=== PATIENT | female | born 1940 | race Asian ===

== ENCOUNTER 2017-06-22 19:58 | Inpatient (IN) | payer OTHER ==
[~2017-06-22] VITALS: Ht 152.4 cm; Wt 71.7 kg
[~2017-06-22 19:58] MED LIST: AMLODIPINE BES2.5 M1 PO; ASPIR 8181 MG; ATORVASTATIN CA80 M1 PO; ECO81 PO; FENOFIBRATE54 M1 PO; GLU500 PO; HCTZ/LISINOPRIL1 TA1 PO; LOSARTAN POTASS25 M1 PO; METOPROLOL TART25 M1 PO; VICODIN1 TA1 PO
[2017-06-22 20:03] VITALS: Ht 152.4 cm; Wt 71.7 kg
[2017-06-22] MEDS ORDERED: POTASSIUM CHLO10 MEQ PO (20:51)
[2017-06-22] MEDS ORDERED: FUROSEMIDE40 MG PO (20:51)
[2017-06-22] MEDS ORDERED: DIOVAN320 MG PO (20:51)
[2017-06-22] MEDS ORDERED: LEVOCETIRIZINE D5 M1 PO (20:52)
[2017-06-22] MEDS ORDERED: MELOXICAM7.5 M1 PO (20:52)
[2017-06-22] MEDS ORDERED: GLIMEPIRIDE2 M1 PO (20:52)
[2017-06-22] MEDS ORDERED: TRAMADOL HCL50 MG PO (20:52)
[2017-06-22 21:05] LABS: microscopic required? NO
[2017-06-22 21:13] LABS: urine erythrocyte NEGATIVE (NEGATIVE)
[2017-06-22 22:07] LABS: CALCIUM 9.2 mg/dL (8.5-10.1); CARBON DIOXIDE 25.4 mmol/L (21-32); CHLORIDE SERUM 101 mmol/L (98-107); CREATININE SERUM 0.9 mg/dL (0.6-1.0); GLUCOSE SERUM 131 mg/dL (74-106); POTASSIUM SERUM 3.3 mmol/L (3.5-5.1); SODIUM SERUM 138 mmol/L (136-145)
[2017-06-22 22:10] LABS: ALBUMIN 3.8 g/dL (3.4-5.0); ALKALINE PHOSPHATASE 54 U/L (46-116); ALT/SGPT 32 U/L (14-59); AST/SGOT 27 U/L (15-37); BILIRUBIN TOTAL 0.34 mg/dL (0.20-1.00); TOTAL PROTEIN, SERUM 6.9 g/dL (6.4-8.2)
[2017-06-22 22:24] LABS: BASOPHIL % 0.8 % (0-2); PLATELET COUNT 242 x10^3mcL (130-400); RED CELL DISTRIBUTION WIDTH 14.6 % (11.5-14.5)
[2017-06-23] VITALS (8 sets, daily range): BP systolic 127–192; BP diastolic 53–69
[2017-06-23 02:50] LABS: MAGNESIUM 1.9 mg/dL (1.8-2.4); PHOSPHOROUS 2.6 mg/dL (2.5-4.9)
[2017-06-23 02:53] LABS: CHOLESTEROL/HDL RATIO 3.1
[2017-06-23 02:56] LABS: FREE T4 1.27 ng/dL (0.76-1.46); FREE THYROXINE INDEX 3.2 ug/dL (1.4-4.5)
[2017-06-23 02:57] LABS: T3 TOTAL 0.59 ng/mL
[2017-06-23] MEDS ORDERED: VALSARTAN AND H PO (08:35)
[2017-06-23] MEDS ORDERED: CARVEDILOL12.5 M1 PO ×2 (08:45→09:45)
[2017-06-24 04:52] VITALS: BP 164/74
[2017-06-24 05:58] LABS: BASOPHIL % 0.6 % (0-2); PLATELET COUNT 252 x10^3mcL (130-400); RED CELL DISTRIBUTION WIDTH 14.5 % (11.5-14.5)
[2017-06-24 06:31] LABS: CALCIUM 9.5 mg/dL (8.5-10.1); CARBON DIOXIDE 29.3 mmol/L (21-32); CHLORIDE SERUM 103 mmol/L (98-107); CREATININE SERUM 1.1 mg/dL (0.6-1.0); GLUCOSE SERUM 109 mg/dL (74-106); MAGNESIUM 1.8 mg/dL (1.8-2.4); PHOSPHOROUS 4.2 mg/dL (2.5-4.9); POTASSIUM SERUM 3.6 mmol/L (3.5-5.1); SODIUM SERUM 142 mmol/L (136-145)
[2017-06-24] MEDS ORDERED: CARVEDILOL12.5 M1 PO ×2 (08:17)
[2017-06-24 09:41] VITALS: BP 166/75
[2017-06-24 12:01] VITALS: BP 115/62
[2017-06-24 13:21] VITALS: BP 115/62
[2017-06-24] MEDS ORDERED: DIOVAN HCT1 TA3 PO (14:06)
[2017-06-24 14:10] VITALS: BP 115/62
[2017-06-29] MEDS ORDERED: MECLIZINE HYD12.5 MG PO (18:54)
== END 2017-06-24 14:46 | disposition home or self-care (01) | DRG 304 ==
LOC: ED 19:58 → DU 06-23 01:32
PROVIDERS: Emergency Medicine; Student in an Organized Health Care Education/Training Program
DX: I16.0 Hypertensive urgency (principal); N17.0 Acute kidney failure with tubular necrosis; R55 Syncope and collapse; E11.65 Type 2 diabetes mellitus with hyperglycemia; E87.6 Hypokalemia; I10 Essential (primary) hypertension; K21.9 Gastro-esophageal reflux disease without esophagitis; E11.51 Type 2 diabetes mellitus with diabetic peripheral angiopathy without gangrene; E03.9 Hypothyroidism, unspecified; E78.5 Hyperlipidemia, unspecified; E78.00 Pure hypercholesterolemia, unspecified; Z88.0 Allergy status to penicillin; Z82.49 Family history of ischemic heart disease and other diseases of the circulatory system
CPT/HCPCS: 82962; 83880; 84439; J0360; J7030; Q0092

== ENCOUNTER 2019-01-25 18:03 | Emergency (ER) | payer OTHER ==
[~2019-01-25] VITALS: Ht 152.4 cm; Wt 81.6 kg
[~2019-01-25 18:03] MED LIST changes: +CARVEDILOL12.5 M1 PO; +DIOVAN HCT1 TA3 PO; +DIOVAN320 MG PO; +FUROSEMIDE40 MG PO; +GLIMEPIRIDE2 M1 PO; +LEVOCETIRIZINE D5 M1 PO; +MECLIZINE HYD12.5 MG PO; +MELOXICAM7.5 M1 PO; +POTASSIUM CHLO10 MEQ PO; +TRAMADOL HCL50 MG PO; +VALSARTAN AND H PO
[2019-01-25 18:10] VITALS: Ht 152.4 cm; Wt 81.6 kg
[2019-01-25 19:44] LABS: BASOPHIL % 0.8 % (0-2); PLATELET COUNT 214 x10^3mcL (130-400)
[2019-01-25 19:46] LABS: RED CELL DISTRIBUTION WIDTH 15.7 % (11.5-14.5)
[2019-01-25 19:57] LABS: CALCIUM 8.8 mg/dL (8.5-10.1); CARBON DIOXIDE 27.9 mmol/L (21-32); CHLORIDE SERUM 104 mmol/L (98-107); GLUCOSE SERUM 132 mg/dL (74-106); POTASSIUM SERUM 3.9 mmol/L (3.5-5.1); SODIUM SERUM 143 mmol/L (136-145)
[2019-01-25 20:04] LABS: ALBUMIN 3.6 g/dL (3.4-5.0); ALKALINE PHOSPHATASE 91 U/L (46-116); ALT/SGPT 26 U/L (14-59); AST/SGOT 26 U/L (15-37); BILIRUBIN TOTAL 0.42 mg/dL (0.20-1.00); TOTAL PROTEIN, SERUM 7.1 g/dL (6.4-8.2)
[2019-01-25 20:08] LABS: CHOLESTEROL 230 mg/dL (<200)
[2019-01-26 00:47] VITALS: BP 125/69
== END 2019-01-26 00:47 | disposition home or self-care (01) ==
LOC: ED 18:03
PROVIDERS: Specialist
DX: R42 Dizziness and giddiness (principal); R26.2 Difficulty in walking, not elsewhere classified; I10 Essential (primary) hypertension; Z88.0 Allergy status to penicillin
CPT/HCPCS: 36415; G0480; Q0092; Q9967

== ENCOUNTER 2019-04-05 11:53 | Emergency (ER) | payer OTHER ==
[2019-04-05 12:48] VITALS: BP 170/65
== END 2019-04-05 12:48 | disposition left against medical advice (07) ==
LOC: ED 11:53
DX: Z53.21 Procedure and treatment not carried out due to patient leaving prior to being seen by health care provider (principal)